=== PATIENT | male | born 1995 | race Caucasian/White ===

== ENCOUNTER 2023-02-11 00:12 | Emergency (ER) | payer OTHER ==
[~2023-02-11] VITALS: Ht 175.3 cm; Wt 87.7 kg
[2023-02-11] MEDS ORDERED: LIDOCAINE VISCOUS 2% SOLN 15ML UDC SS ONE ×2 (01:40→02:15)
[2023-02-11] MEDS ORDERED: IBUPROFEN 600MG TAB PO ONE (01:40)
[2023-02-11] MEDS ORDERED: IBUP80TA PO (02:13)
[2023-02-11] MEDS ORDERED: ACET-683 PO (02:13)
[2023-02-11] MEDS ORDERED: LIDO15SO PO (02:13)
[2023-02-11] MEDS ORDERED: ACETAMINOPHEN 500 MG TAB PO ONE (02:15)
[2023-02-11 02:35] VITALS: BP 134/87
== END 2023-02-11 02:37 | disposition home or self-care (01) ==
LOC: M ED 00:12 → EDBD 00:12 → M ED 02:37
DX: J02.9 Acute pharyngitis, unspecified (principal)